=== PATIENT | male | born 1960 | race Hispanic/Latino ===

== ENCOUNTER 2016-11-03 15:14 | Emergency (ER) | payer SELFPAY ==
[2016-11-03 16:44] LABS: Basophils % (Auto) 0.6 % (0.0-1.8); Eosinophils % (Auto) 3.7 % (0.0-4.3); Hemoglobin 15.9 gm/dl (11.8-15.2); Mean Corpuscular HGB Conc 34 % (32-34); Mean Corpuscular Hemoglobin 33 pg (28-32); Mean Corpuscular Volume 97 fl (84-94); Platelet Count 222 K/mm3 (140-440); Red Blood Count 4.86 M/mm3 (3.65-5.03); Red Cell Distribution Width 12.8 % (13.2-15.2); White Blood Count 8.1 K/mm3 (4.5-11.0)
[2016-11-03 17:03] LABS: Anion Gap 16 mmol/L; BUN/Creatinine Ratio 18.75; Blood Urea Nitrogen 15 mg/dL (9-20); Calcium 9.8 mg/dL (8.4-10.2); Carbon Dioxide 26 mmol/L (22-30); Chloride 97.7 mmol/L (98-107); Glucose 109 mg/dL (75-100); Potassium 4.1 mmol/L (3.6-5.0); Sodium 136 mmol/L (137-145)
--- NOTE | 2016-11-03 17:49 | Emergency Department Report ---
ED Chest Pain HPI - General Chief Complaint: Chest Pain Stated Complaint: CHEST PAIN Time Seen by Provider: 11/03/16 16:42 Source: patient, EMS Mode of arrival: Stretcher Limitations: No Limitations - History of Present Illness MD Complaint: chest pain -: Gradual, Sudden Onset: during rest Pain Location: left chest, right chest, epigastric Pain Radiation: none Severity: mild Severity scale (0 -10): 0 Quality: sharp Consistency: constant Improves With: nothing Worsens With: nothing Context: other re: other Other Symptoms: cough Treatments Prior to Arrival: aspirin, nitroglycerin Aspirin use within the Past 7 Days: (0) No - Related Data Allergies Allergy/AdvReac Type Severity Reaction Status Date / Time No Known Allergies Allergy Unverified 11/03/16 15:21 Heart Score - HEART Score History: Slightly suspicious EKG: Normal Age: 45-65 Risk factors: No known risk factors Troponin: < normal limit HEART Score: 1 - Critical Actions Critical Actions: 0-3 pts:0.9-1.7%risk of adverse cardiac event.Candidate for discharge ED Review of Systems ROS: Stated complaint: CHEST PAIN Other details as noted in HPI Comment: All other systems reviewed and negative Cardiovascular: chest pain Gastrointestinal: nausea ED Past Medical Hx - Past Medical History Hx Hypertension: Yes - Surgical History Additional Surgical History: cyst removal - Social History Smoking Status: Former Smoker Substance Use Type: Alcohol ED Physical Exam - General Limitations: No Limitations General appearance: alert, in no apparent distress - Head Head exam: Present: atraumatic - Eye Eye exam: Present: normal appearance Pupils: Present: normal accommodation - ENT ENT exam: Present: normal exam - Neck Neck exam: Present: normal inspection, tenderness - Respiratory Respiratory exam: Present: normal lung sounds bilaterally - Cardiovascular Cardiovascular Exam: Present: regular rate - GI/Abdominal GI/Abdominal exam: Present: soft, distended - Extremities Exam Extremities exam: Present: normal inspection - Back Exam Back exam: Present: normal inspection, full ROM - Neurological Exam Neurological exam: Present: alert, altered, oriented X3 - Psychiatric Psychiatric exam: Present: normal affect, normal mood - Skin Skin exam: Present: warm, dry ED Course Vital Signs 11/03/16 11/03/16 11/03/16 15:38 15:40 15:56 Temperature 99.0 F Pulse Rate 67 Respiratory 18 Rate Blood Pressure 179/93 Blood Pressure 179/93 [Right] O2 Sat by Pulse 98 98 99 Oximetry 11/03/16 16:24 Temperature Pulse Rate Respiratory 12 Rate Blood Pressure Blood Pressure [Right] O2 Sat by Pulse 100 Oximetry - Reevaluation(s) Reevaluation #1: 11/03/16 18:55 feels better was advised about admission but refused. ED Medical Decision Making - Lab Data Result diagrams: 11/03/16 16:24 11/03/16 16:24 - EKG Data EKG shows normal: sinus rhythm Critical care attestation.: If time is entered above; I have spent that time in minutes in the direct care of this critically ill patient, excluding procedure time. ED Disposition Clinical Impression: Chest pain Disposition: DC-01 TO HOME OR SELFCARE Is pt being admited?: No Does the pt Need Aspirin: No Condition: Stable Instructions: Chest Pain (ED) Referrals: PRIMARY CARE, [Primary Care Provider] - 3-5 Days
[2016-11-03 18:13] LABS: Amylase 58 units/L (27-131); Lipase 76 units/L (13-60)
[2016-11-03 19:58] VITALS: BP 167/89
== END 2016-11-03 19:56 | disposition home or self-care (01) ==
LOC: ED 15:14
DX: R07.89 Other chest pain (principal); I10 Essential (primary) hypertension; Z87.891 Personal history of nicotine dependence
CPT/HCPCS: 36415; 80048; 82150; 83690; 84484; 85025; 93005; 93010; 99285

== ENCOUNTER 2018-12-14 12:23 | Emergency (ER) | payer SELFPAY ==
--- NOTE | 2018-12-14 12:42 | Event Note ---
ED Screening Note ED Screening Note: pt presents with substernal CP that began this morning at 3 AM sharp, stabbing pain states he has been drinking alcohol no SOB no N/V no radiation of the pain PMHx HLD, HTN has not been to a doctor in a "long time" This initial assessment/diagnostic orders/clinical plan/treatment(s) is/are subject to change based on patients health status, clinical progression and re- assessment by fellow clinical providers in the ED. Further treatment and workup at subsequent clinical providers discretion. Patient/guardian urged not to elope from the ED as their condition may be serious if not clinically assessed and managed. Initial orders include: CP protocol
[2018-12-14] MEDS ORDERED: ASPIRIN PO ONE (12:43)
--- NOTE | 2018-12-14 13:18 | XRay Report ---
CHEST 2 VIEWS INDICATION / CLINICAL INFORMATION: Chest pain. COMPARISON: None available. FINDINGS: SUPPORT DEVICES: None. HEART / MEDIASTINUM: No significant abnormality. LUNGS / PLEURA: No significant pulmonary or pleural abnormality. No pneumothorax. ADDITIONAL FINDINGS: No significant additional findings. IMPRESSION: 1. No acute findings. Signer Name: Fritz Oneill MD Signed: 12/14/2018 1:14 PM Workstation Name: [id number]
[2018-12-14 13:20] LABS: Basophils # (Auto) 0.1 K/mm3 (0.0-0.1); Basophils % (Auto) 1.4 % (0.0-1.8); Eosinophils # (Auto) 0.5 K/mm3 (0.0-0.4); Eosinophils % (Auto) 5.8 % (0.0-4.3); Hematocrit 43.6 % (35.5-45.6); Hemoglobin 14.9 gm/dl (11.8-15.2); Lymphocytes # (Auto) 2.8 K/mm3 (1.2-5.4); Lymphocytes % (Auto) 34.9 % (13.4-35.0); Mean Corpuscular HGB Conc 34 % (32-34); Mean Corpuscular Volume 99 fl (84-94); Monocytes # (Auto) 0.6 K/mm3 (0.0-0.8); Monocytes % (Auto) 7.7 % (0.0-7.3); Platelet Count 218 K/mm3 (140-440); Red Blood Count 4.39 M/mm3 (3.65-5.03); Red Cell Distribution Width 12.7 % (13.2-15.2)
[2018-12-14 13:40] LABS: Alanine Aminotransferase 124 units/L (7-56); Albumin 4.4 g/dL (3.9-5); BUN/Creatinine Ratio 8; Blood Urea Nitrogen 8 mg/dL (9-20); Calcium 9.4 mg/dL (8.4-10.2); Hemolysis Index 9
[2018-12-14] MEDS ORDERED: CARAFATE PO ONE (14:10)
[2018-12-14] MEDS ORDERED: PEPCID PO ONE (14:10)
[2018-12-14] MEDS ORDERED: TYLENOL PO ONE (14:10)
--- NOTE | 2018-12-14 14:11 | Emergency Department Report ---
ED Chest Pain HPI - General Chief Complaint: Chest Pain Stated Complaint: CHEST PAIN Time Seen by Provider: 12/14/18 12:39 Source: patient, RN notes reviewed, old records reviewed Mode of arrival: Ambulatory Limitations: No Limitations - History of Present Illness Initial Comments: This is a 58-year-old gentleman. This patient is not known to the provider previously. He does not primary care doctor. He thinks he may have a history of high blood pressure and high cholesterol, but is not sure. He does not take medications for these conditions. The patient presents to the ER with a complaint of resolved chest discomfort. The chest discomfort started at 4:00 in the morning. It started while sleeping. It is described as stabbing in nature. It lasted for a few minutes to a few seconds. It did not radiate to the back, arms or neck. There is no vomiting, diaphoresis, shortness of breath. No DVT or pulmonary embolism risk factors. This is similar to chest pain that he had a few years ago, and even a few months ago. He was seen at this hospital for similar symptoms in 2017. There is no family history of heart disease that he is aware of. There is no family history of DVT or pulmonary embolus and that he is aware of. No recent aspirin consumption. The patient does state that he recreationally consumed alcohol after the first episode of chest discomfort, to alleviate symptoms He reports another episode of chest discomfort at 12:30 this afternoon, which lasted for a few minutes to a few seconds, and is now resolved. The patient states he has no complaints at this time. The patient states that he would like to go home. MD Complaint: chest pain -: Sudden Onset: during exertion Pain Location: substernal Pain Radiation: none Severity: moderate Quality: other Consistency: now resolved Improves With: nothing Worsens With: nothing Aspirin use within the Past 7 Days: (0) No - Related Data On Oral Contraceptives: No Previous Rx's Medication Instructions Recorded Last Taken Type Aspirin [Aspirin BABY CHEW TAB] 81 mg PO QDAY #30 tab.chew 12/14/18 Unknown Rx Famotidine [Pepcid] 20 mg PO BID #20 tablet 12/14/18 Unknown Rx Allergies Allergy/AdvReac Type Severity Reaction Status Date / Time No Known Allergies Allergy Verified 12/14/18 12:25 Heart Score - HEART Score History: Slightly suspicious EKG: Non-specific Age: 45-65 Risk factors: 1-2 risk factors Troponin: < normal limit HEART Score: 3 - Critical Actions Critical Actions: 0-3 pts:0.9-1.7%risk of adverse cardiac event.Candidate for discharge ED Review of Systems ROS: Stated complaint: CHEST PAIN Other details as noted in HPI Constitutional: denies: fever Eyes: denies: eye discharge ENT: denies: epistaxis Respiratory: denies: shortness of breath Cardiovascular: chest pain Gastrointestinal: denies: abdominal pain, nausea, vomiting Genitourinary: denies: dysuria Musculoskeletal: denies: back pain Skin: denies: lesions Neurological: denies: weakness Psychiatric: anxiety ED Past Medical Hx - Past Medical History Hx Hypertension: Yes Additional medical history: HIGH CHOLESTROL - Surgical History Additional Surgical History: cyst removal LEFT KNEE - Social History Smoking Status: Never Smoker Substance Use Type: Alcohol - Medications Home Medications: Home Medications Medication Instructions Recorded Confirmed Last Taken Type Aspirin [Aspirin BABY CHEW TAB] 81 mg PO QDAY #30 tab.chew 12/14/18 Unknown Rx Famotidine [Pepcid] 20 mg PO BID #20 tablet 12/14/18 Unknown Rx ED Physical Exam - General Limitations: No Limitations General appearance: alert, in no apparent distress - Head Head exam: Present: atraumatic, normocephalic - Eye Eye exam: Present: normal appearance, EOMI. Absent: nystagmus - ENT ENT exam: Present: normal exam, normal orophraynx, mucous membranes moist, normal external ear exam - Neck Neck exam: Present: normal inspection, full ROM. Absent: tenderness, meningismus - Respiratory Respiratory exam: Present: normal lung sounds bilaterally. Absent: respiratory distress, wheezes, rales, rhonchi, stridor - Cardiovascular Cardiovascular Exam: Present: regular rate, normal rhythm, normal heart sounds. Absent: bradycardia, tachycardia, irregular rhythm, systolic murmur, diastolic murmur, rubs, gallop - GI/Abdominal GI/Abdominal exam: Present: soft. Absent: distended, tenderness, guarding, rebound, rigid, pulsatile mass - Rectal Rectal exam: Present: deferred - Extremities Exam Extremities exam: Present: normal inspection, full ROM, other (2+ pulses noted in the bilateral upper, lower extremities. There is no long bony tenderness. The pelvis is stable. Muscular compartments are soft.). Absent: pedal edema, joint swelling, calf tenderness - Back Exam Back exam: Present: normal inspection, full ROM. Absent: tenderness, CVA tenderness (R), CVA tenderness (L), paraspinal tenderness, vertebral tenderness - Neurological Exam Neurological exam: Present: alert, oriented X3, normal gait, other (there is no facial droop. The tongue is midline. The extraocular movements are intact bilaterally. 5/ 5 strength bilateral upper, lower extremities. Sensation intact to light touch bilateral upper, lower extremities bilaterally. Sensation is intact to light touch in the bilateral V1, V2, V3 distribution.). Absent: motor sensory deficit - Psychiatric Psychiatric exam: Present: normal affect, normal mood - Skin Skin exam: Present: warm, dry, intact, normal color. Absent: rash ED Course Vital Signs 12/14/18 12:40 Temperature 97.9 F Pulse Rate 91 H Respiratory 16 Rate Blood Pressure 148/69 [Left] O2 Sat by Pulse 95 Oximetry - Reevaluation(s) Reevaluation #1: 12/14/18 15:04 Differential diagnosis, including but not limited to: GERD, gastritis, hiatal hernia, costochondritis, pneumonia, acute coronary syndrome, pancreatitis Assessment and plan: 58-year-old gentleman, not tachycardic, not hypoxic, reports no pulmonary embolism or DVT risk factors, low risk by well's criteria, EKG unchanged 2, and from prior, troponin negative 2. Patient appears to be in no acute distress at this time, and is noted to be playing on a cellular phone. The patient states he has no pain at this time. Patient at low risk for major adverse cardiac event, as per the heart score. Extensive discussion had with the patient regarding various options for cardiac risk stratification. The patient states he does not want to be admitted to the hospital for a stress test, and much prefers to follow up as an outpatient. The patient states he is reliable to follow-up as an outpatient. This hospital and institution of a protocol whereby patients in this particular risk category for major adverse cardiac event can obtain an expedited outpatient follow-up for provocative cardiac testing. Through shared decision making, the patient and I agreed to discharge with close outpatient follow-up with our local cardiology practice. Patient indicates he is reliable to follow-up. SHANDA score - Shanda Score Age > 65: (0) No Aspirin use within the Past 7 Days: (0) No 3 or more CAD Risk Factors: (0) No 2 or more Angina events in past 24 hrs: (0) No Known CAD with more than 50% Stenosis: (0) No Elevated Cardiac Markers: (0) No ST Deviation Greater than 0.5mm: (0) No SHANDA Score: 0 ED Medical Decision Making - Lab Data Result diagrams: 12/14/18 13:03 12/14/18 13:03 Vital Signs 12/14/18 12/14/18 12:40 15:04 Temperature 97.9 F Pulse Rate 91 H 84 Respiratory 16 18 Rate Blood Pressure 148/69 143/95 [Left] O2 Sat by Pulse 95 96 Oximetry Lab Results 12/14/18 12/14/18 Range/Units 13:03 13:03 WBC 8.2 (4.5-11.0) K/mm3 RBC 4.39 (3.65-5.03) M/mm3 Hgb 14.9 (11.8-15.2) gm/dl Hct 43.6 (35.5-45.6) % MCV 99 H (84-94) fl MCH 34 H (28-32) pg MCHC 34 (32-34) % RDW 12.7 L (13.2-15.2) % Plt Count 218 (140-440) K/mm3 Lymph % (Auto) 34.9 (13.4-35.0) % [place] % (Auto) 7.7 H (0.0-7.3) % Eos % (Auto) 5.8 H (0.0-4.3) % Baso % (Auto) 1.4 (0.0-1.8) % Lymph # 2.8 (1.2-5.4) K/mm3 [place] # 0.6 (0.0-0.8) K/mm3 Eos # 0.5 H (0.0-0.4) K/mm3 Baso # 0.1 (0.0-0.1) K/mm3 Seg Neutrophils % 50.2 (40.0-70.0) % Seg Neutrophils # 4.1 (1.8-7.7) K/mm3 Sodium 143 (137-145) mmol/L Potassium 4.0 (3.6-5.0) mmol/L Chloride 104.6 (98-107) mmol/L Carbon Dioxide 26 (22-30) mmol/L Anion Gap 16 mmol/L BUN 8 L (9-20) mg/dL Creatinine 1.0 (0.8-1.5) mg/dL Estimated GFR > 60 ml/min BUN/Creatinine Ratio 8 % Glucose 116 H (75-100) mg/dL Calcium 9.4 (8.4-10.2) mg/dL Total Bilirubin 0.50 (0.1-1.2) mg/dL AST 69 H (5-40) units/L ALT 124 H (7-56) units/L Alkaline Phosphatase 75 (35-129) units/L Troponin T < 0.010 (0.00-0.029) ng/mL Total Protein 7.5 (6.3-8.2) g/dL Albumin 4.4 (3.9-5) g/dL Albumin/Globulin Ratio 1.4 % Lipase 67 H (13-60) units/L - EKG Data -: EKG Interpreted by Ri EKG shows normal: sinus rhythm Rate: normal - EKG Data When compared to previous EKG there are: no significant change 12/14/ 15:07 EKG #1 shows a sinus rhythm, 88 bpm, normal axis, QTC 450 ms, incomplete right bundle branch block, left ventricular hypertrophy, not having active chest pain, the EKG is abnormal, the EKG is not consistent with ST elevation myocardial infarction. EKG #2 is unchanged from prior. Both EKGs appear to be unchanged from prior EKG from 2017. - Radiology Data Radiology results: pending, report reviewed, image reviewed X-ray of the chest is negative for acute disease Critical care attestation.: If time is entered above; I have spent that time in minutes in the direct care of this critically ill patient, excluding procedure time. ED Disposition Clinical Impression: History of chest pain Disposition: DC-01 TO HOME OR SELFCARE Is pt being admited?: No Does the pt Need Aspirin: No Condition: Good Additional Instructions: Avoid consumption of Motrin, ibuprofen, Naprosyn, Aleve. Minimize consumption of alcohol, heavy, spicy foods. Follow-up with a surface room shop optician within the next 2-3 days. Local cardiologists include Dr. Frias, [facility] cardiology Recommend follow-up with the primary medical doctor within 4-6 weeks for general health maintenance. Recommend patient minimize alcohol consumption, lose weight as able to, exercise as physically tolerated, and adjust diet to consume more fiber, lean protein, vegetables, and avoid consumption of unprocessed carbohydrates, fatty foods, sugars. Return to the emergency room right away with new , worsens or different symptoms, or symptoms are present on the initial emergency room evaluation. Referrals: [facility] [Provider Group] - 3-5 Days JENIFER PATEL MD [Staff Physician] - 3-5 Days [facility] [Provider Group] - 3-5 Days [facility] [Provider Group] - 3-5 Days
[2018-12-14] MEDS ORDERED: ASPIRIN ONE (14:27)
[2018-12-14 15:05] VITALS: BP 143/95
== END 2018-12-14 16:24 | disposition home or self-care (01) ==
LOC: ED 12:23
DX: R07.89 Other chest pain (principal); I10 Essential (primary) hypertension; E78.00 Pure hypercholesterolemia, unspecified; Z79.82 Long term (current) use of aspirin; Z79.899 Other long term (current) drug therapy
CPT/HCPCS: 36415; 71046; 80053; 83690; 84484; 85025; 93005; 93010; 99284

== ENCOUNTER 2021-01-13 19:30 | Emergency (ER) | payer SELFPAY ==
[2021-01-13 21:03] VITALS: BP 172/92
[2021-01-13] MEDS ORDERED: predniSONE 20 MG TAB PO ONE (21:16)
[2021-01-13] MEDS ORDERED: ACETAMINOPHEN W/CODEINE 300-30 MG TAB PO ONE (21:16)
[2021-01-13] MEDS ORDERED: IBUPROFEN 800 MG TAB PO ONE (21:16)
--- NOTE | 2021-01-13 21:21 | Emergency Department Report ---
ED Lower Extremity HPI - General Chief Complaint: Extremity Injury, Lower Stated Complaint: L KNEE SWELLING Time Seen by Provider: 01/13/21 21:16 Source: patient Mode of arrival: Ambulatory Limitations: No Limitations - History of Present Illness Initial Comments: Patient 60-year-old white male who presents with left knee pain and swelling for the past 3 days. Patient has history of same with history of ACL repair. Centimeter effusions to same. Patient denies new fall injury or trauma. Patient is partial weightbearing at this time. However states pain is 5/10 exacerbated by weightbearing. There is no fever no chills no lacerations no abrasions no bleeding. Maintains full knee extension. There is no numbness no tingling no calf pain or swelling. MD Complaint: other - Related Data Previous Rx's Medication Instructions Recorded Last Taken Type Aspirin [Aspirin BABY CHEW TAB] 81 mg PO QDAY #30 tab.chew 12/14/18 Unknown Rx Famotidine [Pepcid] 20 mg PO BID #20 tablet 12/14/18 Unknown Rx Menthol/Camphor [Elgin Mangham 1 applic TP QID PRN #1 tube 01/13/21 Unknown Rx Ointment] Naproxen 500 mg PO BID PRN #30 tablet 01/13/21 Unknown Rx predniSONE [Deltasone] 40 mg PO QDAY 5 Days #10 tab 01/13/21 Unknown Rx Allergies Allergy/AdvReac Type Severity Reaction Status Date / Time No Known Allergies Allergy Verified 12/14/18 12:25 ED Review of Systems ROS: Stated complaint: L KNEE SWELLING Other details as noted in HPI Constitutional: denies: chills, fever Eyes: denies: eye pain, eye discharge, vision change ENT: denies: ear pain, throat pain Respiratory: denies: cough, shortness of breath, wheezing Cardiovascular: denies: chest pain, palpitations Endocrine: no symptoms reported Gastrointestinal: denies: abdominal pain, nausea, diarrhea Genitourinary: denies: urgency, dysuria Musculoskeletal: arthralgia, other (Left kned pain and swelling ). denies: back pain, joint swelling Skin: denies: rash, lesions Neurological: denies: headache, weakness, paresthesias Psychiatric: denies: anxiety, depression Hematological/Lymphatic: denies: easy bleeding, easy bruising ED Past Medical Hx - Past Medical History Previous Medical History?: Yes Hx Hypertension: Yes Additional medical history: HIGH CHOLESTROL - Surgical History Past Surgical History?: Yes Additional Surgical History: cyst removal LEFT KNEE - Social History Smoking Status: Never Smoker Substance Use Type: Alcohol - Medications Home Medications: Home Medications Medication Instructions Recorded Confirmed Last Taken Type Aspirin [Aspirin BABY CHEW TAB] 81 mg PO QDAY #30 tab.chew 12/14/18 Unknown Rx Famotidine [Pepcid] 20 mg PO BID #20 tablet 12/14/18 Unknown Rx Menthol/Camphor [Elgin Mangham 1 applic TP QID PRN #1 tube 01/13/21 Unknown Rx Ointment] Naproxen 500 mg PO BID PRN #30 tablet 01/13/21 Unknown Rx predniSONE [Deltasone] 40 mg PO QDAY 5 Days #10 tab 01/13/21 Unknown Rx ED Physical Exam - General Limitations: No Limitations General appearance: alert, in no apparent distress - Head Head exam: Present: atraumatic, normocephalic - Eye Eye exam: Present: normal appearance, EOMI Pupils: Present: normal accommodation - ENT ENT exam: Present: normal exam - Neck Neck exam: Present: normal inspection. Absent: tenderness - Respiratory Respiratory exam: Present: normal lung sounds bilaterally. Absent: respiratory distress, wheezes - Cardiovascular Cardiovascular Exam: Present: regular rate, normal rhythm, normal heart sounds. Absent: systolic murmur, diastolic murmur, rubs, gallop - GI/Abdominal GI/Abdominal exam: Present: soft, normal bowel sounds. Absent: distended, tenderness - Rectal Rectal exam: Present: deferred - Extremities Exam Extremities exam: Present: tenderness, normal capillary refill, joint swelling (left knee anterior swelling ). Absent: calf tenderness - Expanded Lower Extremity Exam Left Knee exam: Present: tenderness, swelling, erythema, pain w/ pronation/supination, pain/laxity with valgus, pain/laxity with varus, full knee extension. Absent: abrasion, laceration, ecchymosis, deformity, crepidus, dislocation, posterior draw sign Lower Leg exam: Present: full ROM. Absent: tenderness Ankle exam: Present: full ROM. Absent: tenderness Foot/Toe exam: Present: tenderness. Absent: swelling Neuro vascular tendon exam: Present: no vascular compromise. Absent: motor deficit, sensory deficit, tendon deficit Gait: Positive: observed and limited by pain - Back Exam Back exam: Present: normal inspection, full ROM. Absent: tenderness - Neurological Exam Neurological exam: Present: alert, oriented X3, CN II-XII intact, reflexes normal. Absent: motor sensory deficit - Expanded Neurological Exam Expanded Patient oriented to: Present: person, place, time Speech: Present: fluid speech Motor strength exam: RLE: 5, LLE: 5 Best Eye Response (Iram): (4) open spontaneously Best Motor Response (Iram): (6) obeys commands Best Verbal Response (Iram): (5) oriented Iram Total: 15 - Psychiatric Psychiatric exam: Present: normal affect, normal mood - Skin Skin exam: Present: warm, dry, intact, normal color. Absent: rash ED Course Vital Signs 01/13/21 21:02 Temperature 98.4 F Pulse Rate 86 Respiratory 18 Rate Blood Pressure 172/92 O2 Sat by Pulse 95 Oximetry ED Lower Extremity MDM - Radiology Data Radiology results: report reviewed, image reviewed EFT KNEE 3 VIEW(S) INDICATION / CLINICAL INFORMATION: knee pain swelling recurring effusion COMPARISON: None available. FINDINGS: BONES / JOINT(S): No acute fracture or subluxation. Postsurgical changes of ACL repair. 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 SOFT TISSUES: Mild soft tissue thickening over the prepatellar soft tissues, suggesting bursitis. ADDITIONAL FINDINGS: None. Signer Name: Drew Hicks DO Signed: 01/13/2021 9:45 PM Workstation Name: [id number] - Medical Decision Making Left knee x-ray no dislocation no subluxation moderate swelling to supra patella consistent with bursitis, pain is improved with medications given in ED plan Ray wrap knee, NSAIDs, short burst steroids, follow-up primary care doctor in 2 to 3 days. Patient verbalized agreement and understanding with discharge plan. Patient DC'd home in stable condition at this time. Critical care attestation.: If time is entered above; I have spent that time in minutes in the direct care of this critically ill patient, excluding procedure time. ED Disposition Clinical Impression: Prepatellar bursitis, left knee Disposition: HOME / SELF CARE / HOMELESS Is pt being admited?: No Does the pt Need Aspirin: No Condition: Stable Instructions: Prepatellar Bursitis Rehab-SportsMed, Bursitis, [id number] Additional Instructions: Take medications as prescribed, moist heat therapy rice therapy, use Ray wrap as needed follow-up primary care doctor in 2 to 3 days. Return to emergency should symptoms worsen. Prescriptions: predniSONE [Deltasone] 40 mg PO QDAY 5 Days #10 tab Naproxen 500 mg PO BID PRN #30 tablet PRN Reason: Pain , Severe (7-10) Menthol/Camphor [Elgin Mangham Ointment] 1 applic TP QID PRN #1 tube PRN Reason: Pain Referrals: JOSE EARLY MD [Staff Physician] - 3-5 Days Forms: Work/School Release Form(ED) Time of Disposition: 22:00
--- NOTE | 2021-01-13 21:49 | XRay Report ---
LEFT KNEE 3 VIEW(S) INDICATION / CLINICAL INFORMATION: knee pain swelling recurring effusion COMPARISON: None available. FINDINGS: BONES / JOINT(S): No acute fracture or subluxation. Postsurgical changes of ACL repair. There is tric ompartment osteoarthritis most significantly involving the medial compartment. SOFT TISSUES: Mild soft tissue thickening over the prepatellar soft tissues, suggesting bursitis. ADDITIONAL FINDINGS: None. Signer Name: Drew Hicks DO Signed: 01/13/2021 9:45 PM Workstation Name: [id number]
== END 2021-01-13 22:45 | disposition home or self-care (01) ==
LOC: ED 19:30
DX: M70.42 Prepatellar bursitis, left knee (principal); Y93.89 Activity, other specified; I10 Essential (primary) hypertension; E78.00 Pure hypercholesterolemia, unspecified; Z98.890 Other specified postprocedural states
CPT/HCPCS: 99283

== ENCOUNTER 2021-10-08 10:55 | Emergency (ER) | payer SELFPAY ==
[2021-10-08] MEDS ORDERED: SODIUM CHLORIDE 0.9% 1000 ML 1,000 ML IV ONE (12:00)
--- NOTE | 2021-10-08 12:33 | Emergency Department Report ---
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 He says he was trying to calibrate the machine and that was the last thing he remembered. Pt denies any chest pain or sob. Pt also denies any history of seizure or stroke. No limb weakness or numbness reported or any other modifying or associated factors. - Related Data Allergies/Adverse Reactions: Allergies No Known Allergies Allergy (Verified 10/08/21 11:00) Home Medications: Ambulatory Orders No Known Home Medications [No Reported Home Medications] 10/08/21 ED Review of Systems ROS: Stated complaint: SYNCOPAL EPISODE Other details as noted in HPI Comment: All other systems reviewed and negative Cardiovascular: syncope ED Past Medical Hx - Past Medical History Hx Hypertension: Yes Additional medical history: HIGH CHOLESTROL - Surgical History Additional Surgical History: cyst removal LEFT KNEE - Social History Smoking Status: Never Smoker Substance Use Type: Alcohol - Medications Home Medications: Home Medications Medication Instructions Recorded Confirmed Last Taken Type No Known Home Medications [No 10/08/21 10/08/21 Unknown History Reported Home Medications] ED Physical Exam - General Limitations: No Limitations General appearance: alert, in no apparent distress - Head Head exam: Present: atraumatic, normal inspection - Eye Eye exam: Present: normal appearance Pupils: Present: normal accommodation - ENT ENT exam: Present: normal exam, normal orophraynx, mucous membranes moist, TM's normal bilaterally - Neck Neck exam: Present: full ROM, other (noted with bilateral lower anterior neck mass with no tenderness). Absent: tenderness - Respiratory Respiratory exam: Present: normal lung sounds bilaterally. Absent: respiratory distress, accessory muscle use - Cardiovascular Cardiovascular Exam: Present: regular rate, normal rhythm, normal heart sounds - GI/Abdominal GI/Abdominal exam: Present: soft, normal bowel sounds. Absent: distended, tenderness - Extremities Exam Extremities exam: Present: normal inspection, full ROM, normal capillary refill. Absent: tenderness, pedal edema - Back Exam Back exam: Present: normal inspection. Absent: tenderness - Neurological Exam Neurological exam: Present: alert, oriented X3, CN II-XII intact - Psychiatric Psychiatric exam: Present: normal affect, normal mood - Skin Skin exam: Present: warm, normal color ED Course Vital Signs 10/08/21 10:58 Temperature 98.4 F Pulse Rate 85 Respiratory 16 Rate Blood Pressure 176/108 [Left] O2 Sat by Pulse 95 Oximetry - Reevaluation(s) Reevaluation #1: 10/08/21 12:40 here with syncope episode and noted to be unremarkable except noted with bilateral lower anterior neck mass with no tenderness--will go ahead and order routine labs including thyroid profile especially the neck mass-- which is likely fat pad but could not rule out thyromegaly or thyroid abnormality--among differential diagnosis for syncope episode could be but not limited to heat stroke, heat exhaustion, myocardial infarction, vasovagal syncope, CVA, seizure or any other infectious process or electrolyte abnormality. 10/08/21 12:45 Reevaluation #2: 10/08/21 17:24 noted with slightly elevated LFTs--but normal t-bili-- will go ahead and order acute hepatitis pending at discharge-- symptoms is likely related to heat as patient reports feeling better with hydration and with normal CT head for any acute findings-- Reevaluation #3: 10/08/21 17:28 CT head noted with FINDINGS: CEREBRAL PARENCHYMA: Mild cortical volume loss and mild chronic white matter changes appear age appropriate. Moderate size chronic left AWNING MAKER AND INSTALLER infarct is present. Chronic subcentimeter infarct in the left subinsular region is also identified. No acute parenchymal abnormality is detected. HEMORRHAGE: None. EXTRA-AXIAL SPACES: Normal in size and morphology for the patient's age. VENTRICULAR SYSTEM: Normal in size and morphology for the patient's age. MIDLINE SHIFT OR HERNIATION: None. CEREBELLUM / BRAINSTEM: No significant abnormality. CALVARIUM: No significant abnormality. ORBITS: Normal as visualized. PARANASAL SINUSES / MASTOID AIR CELLS: There is mild mucosal thickening and trace fluid in the left maxillary sinus. Mild fluid in the ethmoid air cells. SOFT TISSUES of HEAD: No significant abnormality. ADDITIONAL FINDINGS: None. IMPRESSION: No acute intracranial process is identified. Chronic left AWNING MAKER AND INSTALLER infarct and chronic focal infarct in the left subinsular re gion. Mild sinus disease as described, likely chronic. 10/08/21 17:30 The above result discussed with patient and to have a close follow up with his doctor and to drink plenty of fluid and stay out of the heat to prevent recurrent Reevaluation #4: 10/08/21 17:29 CT soft tissue neck noted with FINDINGS: Infrahyoid neck: Visceral space: Inferior pole of the right lobe of the thyroid prominent; no focal mass; left lobe of the thyroid: Normal; isthmus: normal; Trachea: Normal Vascular space: Normal Paraspinal space: Normal Suprahyoid neck: Parotid, Carotid, Retropharyngeal, Prevertebral, Pharyngeal Mucosal, and Supplier Specialist Spaces: No abnormal mass, enhancing lesion or other significant abnormality. Airway: Patent and without significant abnormality. Lymphatics: No lymphadenopathy. Vasculature: No significant abnormality. Osseous Structures: Spondylotic changes at C3-C4, C4-C5 disc level more on the right side Additional findings: None. IMPRESSION: Inferior pole of the right lobe of the thyroid is prominent; however, no focal mass ED Medical Decision Making - Lab Data Result diagrams: 10/08/21 12:44 10/08/21 12:44 - EKG Data -: EKG Interpreted by Ne EKG shows normal: sinus rhythm Rate: normal - EKG Data 10/08/21 12:44 Noted with sinus rhythm at a rate of 79 bpm, with no ST elevation or depression in this normal ECG. Critical care attestation.: If time is entered above; I have spent that time in minutes in the direct care of this critically ill patient, excluding procedure time. ED Disposition Clinical Impression: Syncope and collapse, Neck mass Heat exhaustion Qualifiers: Encounter type: initial encounter Qualified Code(s): T67.5XXA - Heat exhaustion, unspecified, initial encounter Disposition: 01 HOME / SELF CARE / HOMELESS Is pt being admited?: No Does the pt Need Aspirin: No Condition: Stable Instructions: Syncope, [id number], Syncope (ED), Heat Exhaustion Additional Instructions: Call and follow-up with your primary doctor in the next 3 to 5 days for progress Stay out of the heat to prevent recurrent of your symptoms Increase your daily fluid to help your hydration Please do not hesitate to call or return to emergency room if your symptoms worsen Time of Disposition: 17:31
[2021-10-08 12:55] LABS: Basophils % (Auto) 0.6 % (0.0-1.8); Eosinophils # (Auto) 0.3 K/mm3 (0.0-0.4); Eosinophils % (Auto) 3.8 % (0.0-4.3); Hematocrit 44.6 % (35.5-45.6); Hemoglobin 15.1 gm/dl (11.8-15.2); Lymphocytes # (Auto) 2.3 K/mm3 (1.2-5.4); Lymphocytes % (Auto) 29.8 % (13.4-35.0); Mean Corpuscular HGB Conc 34 % (32-34); Mean Corpuscular Volume 97 fl (84-94); Monocytes # (Auto) 0.5 K/mm3 (0.0-0.8); Monocytes % (Auto) 6.3 % (0.0-7.3); Platelet Count 191 K/mm3 (140-440); Red Blood Count 4.61 M/mm3 (3.65-5.03); Red Cell Distribution Width 12.6 % (13.2-15.2)
[2021-10-08 13:20] LABS: Alanine Aminotransferase 76 units/L (7-56); Albumin 4.4 g/dL (3.9-5); BUN/Creatinine Ratio 8; Blood Urea Nitrogen 7 mg/dL (9-20); Calcium 9.4 mg/dL (8.4-10.2); Hemolysis Index 13
--- NOTE | 2021-10-08 13:41 | Cat Scan Report ---
CT HEAD WITHOUT CONTRAST INDICATION / CLINICAL INFORMATION: Syncope. TECHNIQUE: Axial imaging performed from the skull apex through the skull base without the use of cont rast. Sagittal and coronal reformatted images. All CT scans at this location are performed using CT dose reduction for ALARA by means of automated exposure control. COMPARISON: None available. FINDINGS: CEREBRAL PARENCHYMA: Mild cortical volume loss and mild chronic white matter changes appear age appro priate. Moderate size chronic left STOCK RECEIVER infarct is present. Chronic subcentimeter infarct in the left subinsular region is also identified. No acute parenchymal abnormality is detected. HEMORRHAGE: None. EXTRA-AXIAL SPACES: Normal in size and morphology for the patient's age. VENTRICULAR SYSTEM: Normal in size and morphology for the patient's age. MIDLINE SHIFT OR HERNIATION: None. CEREBELLUM / BRAINSTEM: No significant abnormality. CALVARIUM: No significant abnormality. ORBITS: Normal as visualized. PARANASAL SINUSES / MASTOID AIR CELLS: There is mild mucosal thickening and trace fluid in the left m axillary sinus. Mild fluid in the ethmoid air cells. SOFT TISSUES of HEAD: No significant abnormality. ADDITIONAL FINDINGS: None. IMPRESSION: No acute intracranial process is identified. Chronic left STOCK RECEIVER infarct and chronic focal infarct in the left subinsular region. Mild sinus disease as described, likely chronic. Signer Name: Abiodun Gant Jr, MD Signed: 10/08/2021 1:37 PM Workstation Name: [id number]
--- NOTE | 2021-10-08 13:58 | Cat Scan Report ---
CT NECK WITH CONTRAST HISTORY: Thyroid mass COMPARISON: None. TECHNIQUE: Routine CT of the neck is performed following intravenous contrast. All CT scans at [facility] are performed using CT dose reduction for ALARA by means of automated exposure control CONTRAST: 100 mL Omnipaque 300 FINDINGS: Infrahyoid neck: Visceral space: Inferior pole of the right lobe of the thyroid prominent; no focal mass; left lobe of the thyroid: Normal; isthmus: normal; Trachea: Normal Vascular space: Normal Paraspinal space: Normal Suprahyoid neck: Parotid, Carotid, Retropharyngeal, Prevertebral, Pharyngeal Mucosal, and Vehicle Service Agent Spaces: No abnorm al mass, enhancing lesion or other significant abnormality. Airway: Patent and without significant abnormality. Lymphatics: No lymphadenopathy. Vasculature: No significant abnormality. Osseous Structures: Spondylotic changes at C3-C4, C4-C5 disc level more on the right side Additional findings: None. IMPRESSION: Inferior pole of the right lobe of the thyroid is prominent; however, no focal mass Signer Name: Kristen Degroot MD Signed: 10/08/2021 1:54 PM Workstation Name: [email or web address]
[2021-10-08 17:37] VITALS: BP 169/93
--- NOTE | 2021-10-09 11:26 | Electrocardiograph Report ---
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
== END 2021-10-08 18:13 | disposition home or self-care (01) ==
LOC: ED 10:55
DX: R55 Syncope and collapse (principal); R22.1 Localized swelling, mass and lump, neck; T67.5XXA Heat exhaustion, unspecified, initial encounter; X58.XXXA Exposure to other specified factors, initial encounter; Y93.89 Activity, other specified; Y92.89 Other specified places as the place of occurrence of the external cause; Y99.8 Other external cause status; I10 Essential (primary) hypertension; F10.20 Alcohol dependence, uncomplicated
CPT/HCPCS: 36415; 70450; 70491; 80053; 84484; 85025; 85610; 93005; 96360; 99284; Q9967